=== PATIENT | male | born 1960 | race Caucasian/White ===

== ENCOUNTER 2018-06-17 16:16 | Emergency (ER) | payer SELFPAY ==
[2018-06-17 16:16] VITALS: BMI 27.8
[2018-06-17 17:16] VITALS: RESP 18; TEMP 98.5
--- NOTE | 2018-06-17 18:38 | ED PDOC ---
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 Patient denies having any falls, trauma, injury, or twisting to his leg. Patient states that the pain worsens when he is walking, going up and down stairs, and when it is cold (in the morning). Patient denies taking any lengthy trips or having any left knee injuries in the past. PMD: Maddi Guerin MD Past Medical History Reviewed: Historical Data, Nursing Documentation, Vital Signs Vital Signs: Last Vital Signs Temp 98.5 F 06/17/18 17:10 Pulse 86 06/17/18 17:10 Resp 18 06/17/18 17:10 BP Pulse Ox 97 06/17/18 17:10 REDD Report Viewed: Yes - Medical History PMH: HTN Denies: Depression, Chronic Kidney Disease - Family History Family History: States: No Known Family Hx - Social History Current smoker - smoking cessation education provided: No Alcohol: Social Drugs: Denies - Immunization History Hx Tetanus Toxoid Vaccination: No Hx Influenza Vaccination: No Hx Pneumococcal Vaccination: No - Home Medications Home Medications: Ambulatory Orders Medication Instructions Recorded Ibuprofen [Motrin] 600 mg PO Q6 PRN #30 tab 12/28/17 amLODIPine [Norvasc] 10 mg PO DAILY 12/28/17 guaiFENesin/Dextromethorphan 10 ml PO Q8 PRN #2 12/28/17 [guaiFENesin-DM] Azithromycin 250 mg PO DAILY #6 tablet 05/04/18 Benzonatate [Tessalon Perles] 100 mg PO TID PRN #20 sgl 05/04/18 Diclofenac Potassium 50 mg PO BID #20 tablet 06/17/18 - Allergies Allergies/Adverse Reactions: Allergies Allergy/AdvReac Type Severity Reaction Status Date / Time No Known Allergies Allergy Verified 06/17/18 17:10 Review of Systems ROS Statement: Except As Marked, All Systems Reviewed And Found Negative Musculoskeletal: Positive for: Leg Pain (left lower leg pain (left knee extending to foot)) Physical Exam - Reviewed Nursing Documentation Reviewed: Yes Vital Signs Reviewed: Yes - Physical Exam Appears: Positive for: Well, Non-toxic, No Acute Distress Head Exam: Positive for: ATRAUMATIC, NORMOCEPHALIC Skin: Positive for: Normal Color, Warm, Dry. Negative for: Diaphoresis, Pallor, Rash Eye Exam: Positive for: Normal appearance Neck: Positive for: Normal, Painless ROM, Supple. Negative for: Decreased ROM Cardiovascular/Chest: Positive for: Regular Rate, Rhythm Respiratory: Positive for: Normal Breath Sounds Extremity: Positive for: Other (left lower extremity: (-) pallor, (-) ecchymoses, (-) temperature discrepancy, (-) deformity, (-) palpable cord. (-) tenderness of left knee, calf, or ankle. (-) swelling, (-) erythema, (-) warmth, (-) effusion apparent. Distal pulses in tact, Capillary refill <2 seconds. Bilateral legs: superficial varicosities.) Neurologic/Psych: Positive for: Alert, Oriented (3x) - ECG O2 Sat by Pulse Oximetry: 97 (RA) Pulse Ox Interpretation: Normal - CT Scan/US Us duplex lower extrm vein left Other Rad Studies (CT/US): Read By Radiologist, Radiology Report Reviewed (see MDM note) Medical Decision Making Medical Decision Makin:27 Initial impression: 57 year old male with leg pain Initial plan: * US duplex lower extrm vein left * reevaluation 18:53 US duplex lower extrm vein left read and reviewed by radiologist FINDINGS: DEEP VEINS: The common femoral, superficial femoral, and popliteal veins are echolucent and compressible. There is normal color Doppler flow throughout. The visualized calf veins appear patent. SUPERFICIAL VEINS: The visualized greater saphenous vein is patent. SOFT TISSUES: No popliteal fossa cyst or other abnormalities. IMPRESSION: No deep venous thrombosis evident on left lower extremity examination. Scribe Attestation: Documented Jayde Zhang, acting as a scribe for Toni Charlton PA-C. Provider Scribe Attestation: All medical record entries made by the Scribe were at my direction and personally dictated by me. I have reviewed the chart and agree that the record accurately reflects my personal performance of the history, physical exam, medical decision making, and the department course for this patient. I have also personally directed, reviewed, and agree with the discharge instructions and disposition. Disposition - Clinical Impression Clinical Impression: Knee pain, Arthralgia - Patient ED Disposition Is Patient to be Admitted: No Doctor Will See Patient In The: Office Counseled Patient/Family Regarding: Diagnosis, Need For Followup, Rx Given - Disposition Referrals: [facility] [place] [Outside] [facility] [place] [Outside] Disposition: Routine/Home Disposition Time: 19:25 Condition: STABLE Prescriptions: Diclofenac Potassium 50 mg PO BID #20 tablet Instructions: Chronic Knee Pain, Chronic Knee Pain (DC), Muscle and Bone Pain (DC) Forms: [employer] (Pashto)
[2018-06-17 19:53] VITALS: BP 132/80; PULSE 80; O2SAT 100
--- NOTE | 2018-06-18 16:49 | US ---
Date of service: 06/17/2018 HISTORY: r/o dvt. PRIORS: None. FINDINGS: 2-D, color and duplex Doppler analysis of the lower extremity venous circulation using routine protocol from the femoral veins through the popliteal veins. Venous compressibility: Normal. Flow and augmentation patterns: Normal. Visualized veins upper third of calf: Normal. Cabezas cyst: None. IMPRESSION: No sonographic or Doppler evidence for DVT in left lower extremity. Preliminary report was submitted by [facility] Radiology contains concordant findings.
== END 2018-06-17 19:50 | disposition home or self-care (01) ==
LOC: H.ER 16:16
DX: M25.562 Pain in left knee (principal); M25.50 Pain in unspecified joint; I10 Essential (primary) hypertension
CPT/HCPCS: 93971; 96372; 99283; J1885